=== PATIENT | male | born 1940 | race Hispanic/Latino ===

== ENCOUNTER → 2018-10-20 | Outpatient (CLI) | payer OTHER | END | disposition home or self-care (01) | LOC: OIH 10:45 | PROVIDERS: ATTEND Internal Medicine | DX: I70.0 Atherosclerosis of aorta (principal); I10 Essential (primary) hypertension | CPT/HCPCS: 71046 ==

== ENCOUNTER 2019-05-21 14:08 | Observation (INO) | payer OTHER ==
[~2019-05-21] VITALS: Ht 180.3 cm; Wt 88.9 kg
[2019-05-21] MEDS ORDERED: SODIUM CHLORIDE 0.9% 1000ML 1,000 ML IV ONE ×3 (14:30→16:15)
[2019-05-21 15:05] LABS: INR 1.22 (0.85-1.15); PARTIAL THROMBOPLASTIN TIME 29.7 SEC (26.3-35.5); PROTHROMBIN TIME 12.8 SEC (9.6-11.6)
[2019-05-21 15:10] LABS: CARBON DIOXIDE 28 mmol/L (21-32); CHLORIDE 104 mmol/L (101-111); CREATININE 1.7 mg/dL (0.5-1.5); GLOMERULAR FILTR. RATE CALC 42 mL/min (>60); GLUCOSE,RANDOM 103 mg/dL (70-105); POTASSIUM 3.8 mmol/L (3.5-5.1); SODIUM SERUM 141 mmol/L (136-145); UREA NITROGEN, BLOOD 14 mg/dL (7-18)
[2019-05-21 15:12] LABS: BASOPHILS % (AUTO) 0.1 % (0.0-5.0); EOSINOPHILS % (AUTO) 0.2 % (0.0-8.0); HEMATOCRIT 30.4 % (42-54); LYMPHOCYTES % (AUTO) 15.4 % (21.0-51.0); MEAN CORPUSCULAR HEMOGLOBIN 30.1 pg (27.0-33.0); MEAN CORPUSCULAR HGB CONC 33.3 g/dL (32.0-36.0); MEAN CORPUSCULAR VOLUME 90.4 fL (79-99); MONOCYTES % (AUTO) 10.2 % (3.0-13.0); NEUTROPHILS % (AUTO) 74.1 % (40.0-77.0); NUCLEATED RED BLOOD CELLS 0.1 % (0.0-0.19); PLATELET COUNT (AUTO) 197 K/uL (130-400); RED BLOOD CELL COUNT(AUTO) 3.36 MIL/uL (4.50-6.20); WHITE BLOOD COUNT (AUTO) 8.4 K/uL (4.8-10.8)
[2019-05-21 15:23] LABS: ALANINE AMINOTRANSFERASE 55 U/L (12-78); ALBUMIN 1.8 g/dL (3.5-5.0); ASPARTATE AMINOTRANSFERASE 80 U/L (10-37); CREATINE KINASE, TOTAL 310 U/L (21-232); MYOGLOBIN 438 ng/mL (10-92); TOTAL PROTEIN, SERUM 5.3 g/dL (6.0-8.3); TROPONIN I < 0.04 ng/mL (0.00-0.06)
[2019-05-21 15:54] LABS: APPEARANCE,URINE Cloudy (CLEAR); BILIRUBIN,URINE Negative (NEGATIVE); COLOR,URINE Dark Yellow (YELLOW); GLUCOSE, URINE (UA) Negative (NEGATIVE); KETONES,URINE Negative (NEGATIVE); LEUKOCYTE ESTERASE ,URINE Negative (NEGATIVE); NITRATE,URINE Negative (NEGATIVE); OCCULT BLOOD,URINE Negative (NEGATIVE); PH,URINE 5.5 (5.0-8.0); PROTEIN,URINE Negative (NEGATIVE); UROBILINOGEN,URINE 0.2 mg/dL (0.2-1.0)
[2019-05-21 16:15] LABS: BACTERIA,URINE Few /HPF (None Seen); RBC,URINE 0-1 /HPF (0-1)
[2019-05-21 16:16] LABS: MUCUS,URINE Moderate LPF (None Seen); SQUAMOUS EPITHELIAL CELL,UR Rare /HPF (0-2)
[2019-05-21] MEDS ORDERED: 1/2 NORMAL SALINE 1,000 ML IV SCH (17:45)
[2019-05-21] MEDS ORDERED: 1/2 NORMAL SALINE 1,000 ML IV ONE (18:08)
[2019-05-21 20:15] VITALS: BP 140/79
[2019-05-21] MEDS ORDERED: LOSA1TAB54 PO (21:20)
[2019-05-21] MEDS ORDERED: AMLO5TAB9 PO (21:20)
[2019-05-21] MEDS ORDERED: LISI1TAB28 PO (21:20)
[2019-05-21] MEDS ORDERED: GLIP10TA9 PO (21:20)
[2019-05-21] MEDS ORDERED: MULT-1296 PO (21:20)
[2019-05-21] MEDS ORDERED: CARV25TA PO (21:20)
[2019-05-21] MEDS ORDERED: DIPH25TA20 PO (21:20)
[2019-05-21] MEDS ORDERED: SIMV10TA6 PO (21:20)
[2019-05-21] MEDS ORDERED: METF-446 PO (21:20)
[2019-05-21] MEDS ORDERED: PANT40TA25 PO (21:20)
[2019-05-21] MEDS ORDERED: HYDR-4154 PO (21:20)
[2019-05-21] MEDS ORDERED: FERR324T PO (21:20)
[2019-05-21] MEDS ORDERED: AEC81 PO (21:21)
[2019-05-21] MEDS ORDERED: CALC-1009 PO (21:23)
[2019-05-21 23:17] VITALS: BP 118/66
[2019-05-22] MEDS ORDERED: DIPHENHYDRAMINE HCL 25 MG CAPSULE PO PRN (00:30)
[2019-05-22 03:35] VITALS: BP 124/71
[2019-05-22 05:43] LABS: HEMATOCRIT 27.5 % (42-54); MEAN CORPUSCULAR HEMOGLOBIN 29.6 pg (27.0-33.0); MEAN CORPUSCULAR HGB CONC 33.9 g/dL (32.0-36.0); MEAN CORPUSCULAR VOLUME 87.3 fL (79-99); PLATELET COUNT (AUTO) 167 K/uL (130-400); RED BLOOD CELL COUNT(AUTO) 3.15 MIL/uL (4.50-6.20); RED CELL DISTRIBUTION WIDTH 14.2 % (11.0-15.5); WHITE BLOOD COUNT (AUTO) 5.2 K/uL (4.8-10.8)
[2019-05-22] MEDS ORDERED: DEXTROSE 50%-WATER 50 ML DISP.SYRIN IV ONE (05:43)
--- NOTE | 2019-05-22 05:45 | NUR ---
HYPOGLYCEMIA-BS 35mg/dl, re-checked 36mg/dl. Patient AAOx3, resting in bed, asymptomatic.
[2019-05-22 05:58] LABS: ALBUMIN 1.4 g/dL (3.5-5.0); BILIRUBIN,TOTAL 0.3 mg/dL (0.2-1.0); CREATININE 0.9 mg/dL (0.5-1.5); TOTAL PROTEIN, SERUM 4.4 g/dL (6.0-8.3)
[2019-05-22 06:00] LABS: POTASSIUM 2.9 mmol/L (3.5-5.1)
--- NOTE | 2019-05-22 06:20 | NUR ---
HYPOGLYCEMIA-Dr. Stephenson roundbrett, made aware of decreased BS=35mg/dl (117mg/dl after 1amp of D50), low Mg 1.0, K=2.9, new orders given. Patient AAOx3, denies discomfort & no acute distress noted.
[2019-05-22] MEDS ORDERED: MAGNESIUM 2GM PREMIX 50ML 50 ML IV ONE (06:44)
[2019-05-22] MEDS ORDERED: MAGNESIUM 2GM PREMIX 50ML 50 ML IV PRN (06:45)
[2019-05-22] MEDS ORDERED: GLUCAGON 1MG KIT 1 MG ML IM PRN (06:45)
[2019-05-22] MEDS ORDERED: LIDOCAINE HCL-MPF 1% 2ML VIAL IV PRN (06:45)
[2019-05-22] MEDS ORDERED: POTASSIUM CHLORIDE 10% ELIXIR 20 MEQ/15 ML UDCUP PO PRN (06:45)
[2019-05-22] MEDS ORDERED: POTASSIUM CHLORIDE 20MEQ/100ML 100 ML IV PRN (06:45)
[2019-05-22] MEDS ORDERED: DEXTROSE 50%-WATER 50 ML DISP.SYRIN IV PRN (06:45)
[2019-05-22 07:00] VITALS: BP 122/69
[2019-05-22] MEDS ORDERED: GLIPIZIDE 5 MG TABLET PO SCH (08:00)
[2019-05-22] MEDS ORDERED: METFORMIN HCL 500 MG TABLET PO SCH (08:00)
[2019-05-22] MEDS: ASPIRIN 81 MG EC TAB PO SCH (08:34)
[2019-05-22] MEDS: CARVEDILOL 25 MG TABLET PO SCH ×2 (08:37→20:23)
[2019-05-22] MEDS: PANTOPRAZOLE SODIUM 40 MG TABLET.DR PO SCH (08:37)
[2019-05-22] MEDS: POTASSIUM CHLORIDE 20 MEQ ERTAB PO PRN ×4 (08:37→16:19)
[2019-05-22] MEDS: AMLODIPINE BESYLATE 5 MG TAB PO SCH (08:37)
[2019-05-22] MEDS: MULTIVITAMIN WITH MINERALS TABLET PO SCH (08:38)
[2019-05-22] MEDS: FERROUS GLUCONATE 325 MG TABLET PO SCH (08:38)
[2019-05-22] MEDS: HYDRALAZINE HCL 25 MG TABLET PO SCH ×2 (08:38→20:23)
[2019-05-22] MEDS: CALCIUM 600 + VITAMIN D 400 TABLET PO SCH (08:38)
[2019-05-22] MEDS ORDERED: LOSARTAN PO SCH (09:00)
[2019-05-22] MEDS ORDERED: HYDROCHLOROTHIAZIDE PO SCH (09:00)
[2019-05-22] MEDS ORDERED: LISINOPRIL 20 MG TABLET PO SCH (09:00)
[2019-05-22 11:00] VITALS: BP 113/66
[2019-05-22 16:00] VITALS: BP 126/73
--- NOTE | 2019-05-22 16:05 | NUR ---
INITIAL MET W PT AND HIS TWIN DAUGHTERS States pt had previously lived alone, but now he was coming to live with them in their home- "large historical house, has bedroom/shower on main floor, we will look after him". there is also ramp; patient currently uses no DME. Daughters also stated switched patient to [facility]- did that this past week- next appointment is in June DCP is home Addendum: 05/22/19 at 1651 by CHANCE THAYER RN Amended: Links added.
[2019-05-22 20:00] VITALS: BP 123/69
[2019-05-22] MEDS ORDERED: SIMVASTATIN 10 MG TABLET PO SCH (21:00)
[2019-05-23] VITALS: BP 123/67
[2019-05-23 04:00] VITALS: BP 120/54
[2019-05-23 05:47] LABS: HEMATOCRIT 27.5 % (42-54); MEAN CORPUSCULAR HEMOGLOBIN 30.4 pg (27.0-33.0); MEAN CORPUSCULAR HGB CONC 34.2 g/dL (32.0-36.0); MEAN CORPUSCULAR VOLUME 88.7 fL (79-99); NUCLEATED RED BLOOD CELLS 0.1 % (0.0-0.19); PLATELET COUNT (AUTO) 151 K/uL (130-400); RED CELL DISTRIBUTION WIDTH 14.1 % (11.0-15.5); WHITE BLOOD COUNT (AUTO) 5.6 K/uL (4.8-10.8)
[2019-05-23 06:09] LABS: ALBUMIN 1.4 g/dL (3.5-5.0); BILIRUBIN,TOTAL 0.4 mg/dL (0.2-1.0); CREATININE 0.8 mg/dL (0.5-1.5); MAGNESIUM 1.3 mg/dL (1.80-2.40); POTASSIUM 3.4 mmol/L (3.5-5.1); TOTAL PROTEIN, SERUM 4.5 g/dL (6.0-8.3)
[2019-05-23] MEDS: POTASSIUM CHLORIDE 20 MEQ ERTAB PO PRN ×2 (06:57→09:08)
[2019-05-23 08:00] VITALS: BP 129/67
[2019-05-23] MEDS ORDERED: HYDROCHLOROTHIAZIDE 25 MG TABLET PO SCH (09:00)
[2019-05-23] MEDS ORDERED: LISINOPRIL 20 MG TABLET PO SCH (09:00)
[2019-05-23] MEDS: FERROUS GLUCONATE 325 MG TABLET PO SCH (09:06)
[2019-05-23] MEDS: PANTOPRAZOLE SODIUM 40 MG TABLET.DR PO SCH (09:06)
[2019-05-23] MEDS: ASPIRIN 81 MG EC TAB PO SCH (09:06)
[2019-05-23] MEDS: MULTIVITAMIN WITH MINERALS TABLET PO SCH (09:06)
[2019-05-23] MEDS: CALCIUM 600 + VITAMIN D 400 TABLET PO SCH (09:06)
[2019-05-23 09:07] VITALS: BP 129/67
[2019-05-23] MEDS: CARVEDILOL 25 MG TABLET PO SCH (09:07)
[2019-05-23] MEDS: AMLODIPINE BESYLATE 5 MG TAB PO SCH (09:07)
[2019-05-23] MEDS: HYDRALAZINE HCL 25 MG TABLET PO SCH (09:08)
--- NOTE | 2019-05-23 11:52 | NUR ---
DISCHARGE INSTRUCTION PROVIDED TO PATIENT ALONG WITH INSTRUCTION TO HOLD THE DM MEDS AND BP MED LISTED ON DISCHARGE PAPERWORK.ALSO LET PT AND JÚNIOR KNOW TO QUALITY IMPROVEMENT ENGINEER A MED [place] MENTIONED TO THEM TOMORROW AT CLINIC.BOTH VERBILIZED UNDERSTANDING
== END 2019-05-23 11:50 | disposition home or self-care (01) ==
LOC: EDH 14:08 → EDHIP 16:47 → 3AH 20:15
PROVIDERS: ADMIT Internal Medicine; ATTEND Internal Medicine
DX: E11.649 Type 2 diabetes mellitus with hypoglycemia without coma (principal); E11.22 Type 2 diabetes mellitus with diabetic chronic kidney disease; E86.0 Dehydration; I12.9 Hypertensive chronic kidney disease with stage 1 through stage 4 chronic kidney disease, or unspecified chronic kidney disease; N18.9 Chronic kidney disease, unspecified; N17.9 Acute kidney failure, unspecified; E78.5 Hyperlipidemia, unspecified; E43 Unspecified severe protein-calorie malnutrition; K86.1 Other chronic pancreatitis
CPT/HCPCS: 36415 ×3; 71045; 74176; 80053 ×3; 81001; 82140; 82550; 82948 ×9; 83605 ×2; 83735 ×2; 83874; 84132; 84484; 85025; 85027 ×2; 85610; 85730; 87040 ×2; 87088; 93005; 96361; 96365; 96366 ×3; 96375; 99284; G0378 ×38; J3475 ×2; J3480; J3490; J7030 ×3; J7070